=== PATIENT | male | born 1950 | race Caucasian/White ===

== ENCOUNTER 2023-01-12 16:32 | Emergency (ER) | payer OTHER ==
--- OUTSIDE RECORDS SUMMARY | 2023-01-12 16:35 | XMS REPORT | Continuity of Care Document ---
:1950 Author Organization [facility] t Address [address] [facility]. [address] [place] [address] Care Team Providers Name Role Phone Johnson Chen Primary Care Physician Doctor Unassigned, [place] Attending Clinician Unavailable Payers Payer Name Policy Type Policy Number Effective Date Expiration Date S ource Problems Condition Condition Condition Status Onset Resolution Last Treating Co mments Source Name Details Category Date Date Treatment Clinician Date Presence Presence Disease Active 2016-06 Unive rs of left of left 0-27 [place] shoulder 00 Med[place] joint joint Branch Other Other Disease Active 2016-06 Univers specified specified 0-17 [place] 00 Medical shoulder shoulder Branch Decreased Decreased Disease Active 2016-06 Uni vers range of range of 0-17 [place] 00 [place] left left Branch S/P S/P Disease Active 2016-06 Univers reverse reverse 0-17 ity of total total 00:00: [place] shoulder shoulder 00 Medica l arthroplas arthroplas Br anch ty, left ty, left Allergies, Adverse Reactions, Alerts This patient has no known allergies or adverse reactions. Social History Social Habit Start Date Stop Date Quantity Comments Source Sex Assigned At [birth year] [facility] 00:00:00 00:00:00 Medical Branch Smoking Status Start Date Stop Date Source Tobacco smoking consumption [facility] Medical unknown Branch Medications This patient has no known medications. Procedures Procedure Date / Time Performed Performing Clinician [facility] e REFERRAL- 2022-02-25 05:01:00 Doctor Unassigned, No [facility] [place] REQUEST/RESPONSE Name Medical Branch Encounters Start End Encounter Admission Attending Care Care Encounter Source Date/Time Date/Time Type Type Clinicians Facility Department ID 2022-02-25 2022-02-25 Orders Doctor ODEN [id number] [address] [facility] 00:00:00 00:00:00 Only Unassigned, BERNARD [id number] ity of [place] [facility] [id number] [facility] as [id number] [facility] 009 Branch Results This patient has no known results.
[2023-01-12 17:45] LABS: Absolute Lymphocytes (CBC) 2.5 K/uL (0.7-4.9); Hematocrit 36.7 % (39.6-49.0); MCV 89.6 fL (80-100); MPV 8.7 fL (7.6-11.3); Platelets 228 thou/uL (152-406)
[2023-01-12 17:48] LABS: Protime INR 0.95
--- NOTE | 2023-01-12 18:01 | RAD REPORT ---
EXAM DESCRIPTION: Chele Single View01/12/2023 5:49 pm CLINICAL HISTORY: Cough COMPARISON: August 2022 FINDINGS: Moderate bilateral interstitial lung opacities without obvious change probably chronic. Lungs appear clear of acute infiltrate. The heart remains enlarged IMPRESSION: No acute abnormalities displayed
[2023-01-12 18:12] LABS: AST/SGOT 11 U/L (15-37); Albumin 2.9 g/dL (3.4-5.0); Alkaline Phosphatase 60 U/L (45-117); BUN Blood Urea Nitrogen 11 mg/dL (7-18); Bicarbonate 29 mEq/L (21-32); Bilirubin Direct 0.2 mg/dL (0-0.2); Bilirubin Indirect, Calculated 0.2 mg/dL (0.2-0.8); Bilirubin Total 0.4 mg/dL (0.2-1.0); Glomerular Filtration Rate 90 ml/min (=/>90); Glucose Level 86 mg/dL (74-106); Magnesium 1.9 mg/dL (1.6-2.4); NT PRO-BNP 937 pg/mL (<125); Potassium 3.3 mEq/L (3.5-5.1); Protein, Total 6.7 g/dL (6.4-8.2); Sodium Level 134 mEq/L (136-145); Troponin High Sensitivity 7.8 pg/mL (<58.9)
--- NOTE | 2023-01-12 18:13 | RAD REPORT ---
EXAM DESCRIPTION: CT - Head Brain Wo Cont - 01/12/2023 6:03 pm CLINICAL HISTORY: Dizziness COMPARISON: none TECHNIQUE: Computed axial tomography of the head was obtained. IV contrast was not requested. All CT scans are performed using dose optimization technique as appropriate and may include automated exposure control or mA/KV adjustment according to patient size. FINDINGS: An intracranial bleed is not seen The ventricles are normal in caliber No significant hypodense areas within the brain visualized No extra-axial fluid collection is noted. Fluid within the sinuses/ mastoids is not seen IMPRESSION: No acute intracranial abnormality is seen If patient's symptoms persist MRI of the brain would be recommended
[2023-01-12 18:43] LABS: Specific Gravity 1.025 (1.005-1.030); Urine Bacteria <20 /HPF (<20); Urine Bilirubin NEGATIVE (Negative); Urine Blood Negative (Negative); Urine Clarity Turbid (Clear); Urine Color Yellow (Yellow); Urine Glucose NEGATIVE (Negative); Urine Mucus 1+ /HPF (None Seen); Urine Protein 1+ (Negative); Urine RBC <5 /HPF (None Seen); Urine Urobilinogen 1+ (Normal)
[2023-01-12 18:50] LABS: ALT/SGPT < 10 U/L (16-61)
[2023-01-12] MEDS ORDERED: MECLIZINE HCL 12.5 MG TAB ONE (19:57)
[2023-01-12] MEDS ORDERED: NA CHLORIDE 0.9% 250 ML ONE (19:57)
--- NOTE | 2023-01-12 21:06 | EDPHYS ---
Physician Documentation [facility] Name: El Bowen Age: 72 yrs Sex: Male : 1950 Arrival Date: 01/12/2023 Time: 16:32 Bed 17 Private MD: ED Physician Timothy Barrios HPI: 01/12 17:15 This 72 yrs old Male presents to ER via Ambulatory with complaints of Blood Pressure cp Problem, Dizziness. 17:15 The patient presents with dizziness, generalized weakness, lightheadedness, feeling off cp balance. 17:15 Onset: The symptoms/episode began/occurred this morning, at about 1100. Associated cp signs and symptoms: Pertinent negatives: abdominal pain, chest pain, confusion, diaphoresis, focal weakness, head injury, headache, near-syncope, shortness of breath, vomiting. Severity of symptoms: in the emergency department the symptoms are unchanged despite home interventions. Patient's baseline: Neuro: alert and fully oriented, Motor: tremor, Ambulation: walks without assistance, Speech: slow. Patient reports since yesterday he has noticed general weakness and today dizziness started, checked his blood pressure and systolic number was 90. Historical: - Allergies: 16:56 No Known Allergies; cm10 - PMHx: 16:56 Parkinson's disease; cm10 - Immunization history:: Adult Immunizations. - Social history:: Smoking status: Patient denies any tobacco usage or history of. ROS: 17:20 Constitutional: Negative for body aches, chills, fever, poor PO intake. cp 17:20 Eyes: Negative for injury, pain, redness, and discharge. cp 17:20 ENT: Negative for drainage from ear(s), ear pain, sore throat, difficulty swallowing, difficulty handling secretions. 17:20 Neck: Negative for pain with movement, pain at rest, stiffness. 17:20 Cardiovascular: Negative for chest pain, palpitations. 17:20 Respiratory: Negative for cough, shortness of breath, wheezing. 17:20 Abdomen/GI: Negative for abdominal pain, vomiting, diarrhea, constipation, black/tarry stool, rectal bleeding. 17:20 : Negative for urinary symptoms. 17:20 Neuro: Positive for dizziness, weakness, Negative for altered mental status, numbness, syncope. 17:20 All other systems are negative. Exam: 17:25 Constitutional: The patient appears in no acute distress, alert, awake, cp non-diaphoretic, non-toxic, well developed, well nourished. 17:25 Head/Face: Normocephalic, atraumatic. cp 17:25 Eyes: Periorbital structures: appear normal, Pupils: equal, round, and reactive to light and accomodation, Extraocular movements: intact throughout, Conjunctiva: normal, no exudate, no injection, Sclera: no appreciated abnormality, Lids and lashes: appear normal, bilaterally. 17:25 ENT: External ear(s): are unremarkable, Nose: is normal, Mouth: is normal, Posterior pharynx: is normal, airway is patent, no erythema, no exudate. 17:25 Neck: C-spine: vertebral tenderness, is not appreciated, crepitus, is not appreciated, ROM/movement: is normal, is supple, without pain, no range of motions limitations. 17:25 Chest/axilla: Inspection: normal. 17:25 Cardiovascular: Rate: normal, Rhythm: regular, Edema: is not appreciated, JVD: is not appreciated. 17:25 Respiratory: the patient does not display signs of respiratory distress, Respirations: normal, no use of accessory muscles, no retractions, labored breathing, is not present, Breath sounds: are clear throughout, no decreased breath sounds, no stridor, no wheezing. 17:25 Abdomen/GI: Inspection: abdomen appears normal, Bowel sounds: active, all quadrants, Palpation: abdomen is soft and non-tender, in all quadrants. 17:25 Back: pain, is absent, ROM is normal. 17:25 Skin: cellulitis, is not appreciated, that is mild, on the right groin, rash can be described as erythematous, papular, on the right groin and left groin. 17:25 Neuro: Orientation: to person, place \T\ time. Mentation: is normal, Motor: moves all fours, strength is normal, Sensation: no obvious gross deficits, Abnormal movements: resting tremor, is located in the right hand and left hand. 17:37 ECG was reviewed by the Attending Physician. cp Vital Signs: 16:55 BP 115 / 75; Pulse 75; Resp 16; Temp 97.9; Pulse Ox 99% ; Weight 78.47 kg; Height 6 ft. cm10 0 in. ; Pain 0/10; 17:13 BP 118 / 77; Pulse 74; Resp 16; Pulse Ox 99% on R/A; Pain 0/10; me1 18:27 BP 125 / 71; Pulse 69; Resp 17; Pulse Ox 96% on R/A; me1 19:12 BP 120 / 71 Supine; Pulse 70; Resp 18 S; Pulse Ox 98% on R/A; ha1 19:15 BP 125 / 69 Sitting; Pulse 68; Resp 17 S; Pulse Ox 98% on R/A; ha1 19:20 BP 106 / 73 Standing; Pulse 64; Resp 20 S; Pulse Ox 96% on R/A; ha1 20:00 BP 135 / 77; Pulse 62; Resp 18 S; Pulse Ox 100% on R/A; ha1 21:00 BP 141 / 73; Pulse 63; Resp 17 S; Pulse Ox 98% ; ha1 16:55 Body Mass Index 23.46 (78.47 kg, 182.88 cm) cm10 16:55 Pain Scale: Adult cm10 17:13 Pain Scale: Adult me1 MDM: 17:00 Patient medically screened. cp 21:05 Data reviewed: vital signs, nurses notes, lab test result(s), EKG, radiologic studies, cp CT scan, plain films. 21:05 Differential diagnosis: cardiac arrhythmia, CVA, generalized weakness, GI bleed, cp hypovolemia, TIA. Consideration of Admission/Observation Escalation of care including admission/observation considered. I considered the following discharge prescriptions or medication management in the emergency department Medications were administered in the Emergency Department. See MAR. 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 Response to treatment: the patient's symptoms have markedly improved after treatment, and as a result, I will discharge patient. 01/12 17:08 Order name: Basic Metabolic Panel; Complete Time: 19:19 cp 01/12 19:19 Interpretation: Normal except: NA 134; K 3.3. cp 01/12 17:08 Order name: CBC with Diff; Complete Time: 18:11 cp 01/12 19:20 Interpretation: Normal except: RBC 4.10; HGB 11.9; HCT 36.7; RDW 17.1. cp / 17:08 Order name: LFT's; Complete Time: 19:19 cp / 19:19 Interpretation: Normal except: AST 11; ALT < 10; ALB 2.9; GLOB 3.8; A/G 0.8. cp 01/12 17:08 Order name: Magnesium; Complete Time: 19:19 cp 01/12 17:08 Order name: NT PRO-BNP; Complete Time: 19:19 cp 01/12 20:46 Interpretation: NT PRO-BNP 937; Reviewed. cp 01/12 17:08 Order name: PT-INR; Complete Time: 18:11 cp 01/12 17:08 Order name: Troponin HS; Complete Time: 19:19 cp 01/12 17:08 Order name: Urinalysis W/Microscopic; Complete Time: 19:19 cp 01/12 19:19 Interpretation: Normal except: UCLA Turbid; UKET TRACE; UPROT 1+; UUROB 1+. cp 08/ 17:08 Order name: CT Head Brain wo Cont; Complete Time: 18:21 cp 01/12 18:21 Interpretation: Report reviewed. cp 01/12 17:08 Order name: XRAY Chest (1 view); Complete Time: 18:11 cp / 18:11 Interpretation: Report review. cp 01/12 17:08 Order name: EKG; Complete Time: 17:09 cp 01/12 17:08 Order name: Cardiac monitoring; Complete Time: 17:34 cp 01/12 17:08 Order name: EKG - Nurse/Tech; Complete Time: 17:34 cp 01/12 17:08 Order name: IV Saline Lock; Complete Time: 17:33 cp 08 17:08 Order name: Labs collected and sent; Complete Time: 17:33 cp 01/12 17:08 Order name: O2 Per Protocol; Complete Time: 17:34 cp 01/12 17:08 Order name: O2 Sat Monitoring; Complete Time: 17:34 cp 01/12 17:08 Order name: Orthostatics; Complete Time: 19:27 cp EC:37 Rate is 74 beats/min. Rhythm is regular. NV interval is normal. QRS interval is normal. cp QT interval is normal. T waves are Inverted in lead aVR. Interpreted by me. Reviewed by me. Administered Medications: 19:45 Drug: Meclizine PO 25 mg Route: PO; ha1 21:24 Follow up: Response: No adverse reaction ha1 19:45 Drug: NS 0.9% IV 250 ml Route: IV; Rate: bolus; Site: right antecubital; ha1 21:24 Follow up: Response: No adverse reaction; IV Status: Completed infusion; IV Intake: ha1 250ml 21:15 Drug: Doxycycline PO 100 mg Route: PO; ha1 21:24 Follow up: Response: No adverse reaction ha1 21:20 Drug: Fluconazole PO 200 mg Route: PO; ha1 21:24 Follow up: Response: No adverse reaction ha1 Disposition: 19:58 Co-signature as Attending Physician, Timothy Barrios DO Maggy was immediately available on-site ms3 in the Emergency Department for consultation in the care of the patient. Disposition Summary: 01/12/23 21:06 Discharge Ordered Location: Home cp Problem: new cp Symptoms: have improved cp Condition: Stable cp Diagnosis - Dizziness and giddiness cp - Weakness cp - Local infection of the skin and subcutaneous tissue, unspecified cp Followup: cp - With: Private Physician - When: 2 - 3 days - Reason: Recheck today's complaints Discharge Instructions: - Discharge Summary Sheet cp - Dizziness cp - Weakness cp Forms: - Medication Reconciliation Form cp - Thank You Letter cp - Antibiotic Education cp - Prescription Opioid Use cp - Patient Portal Instructions cp Prescriptions: - nystatin 100,000 unit/gram Topical cream - apply 1 application by TOPICAL route 3 times per day; 30 gram tube; Refills: 0, cp Product Selection Permitted - Meclizine 25 mg Oral Tablet - take 1 tablet by ORAL route every 8 hours As needed; 30 tablet; Refills: 0, cp Product Selection Permitted - Doxycycline Hyclate 100 mg Oral Tablet - take 1 tablet by ORAL route every 12 hours; 20 tablet; Refills: 0, Product cp Selection Permitted Signatures: Dispatcher [employer] EDMS Fernando Allison PA PA cp Sims, Marcus, DO DO ms3 Dominique Agee RN RN ha1 Makayla Mari RN RN cm10 Corrections: (The following items were deleted from the chart) 01/13 21:21 01/12 17:25 Skin: cellulitis, is not appreciated, no rash present. cp cp
--- NOTE | 2023-01-12 21:06 | ER ---
Nurse's Notes [facility] Name: El Bowen Age: 72 yrs Sex: Male : 1950 Arrival Date: 01/12/2023 Time: 16:32 Bed 17 Private MD: Diagnosis: Dizziness and giddiness;Weakness;Local infection of the skin and subcutaneous tissue, unspecified Presentation: 01/12 16:55 Chief complaint: Patient states: dizziness onset today at noon. Pt also reports low cm10 blood pressure. Per pt, his blood pressure was 90/52 at home. Coronavirus screen: Vaccine status: Patient reports receiving the 2nd dose of the covid vaccine. Ebola Screen: No symptoms or risks identified at this time. 16:55 Method Of Arrival: Ambulatory cm10 16:56 Initial Sepsis Screen: Does the patient meet any 2 criteria? No. Patient's initial cm10 sepsis screen is negative. Does the patient have a suspected source of infection? No. Patient's initial sepsis screen is negative. Risk Assessment: Do you want to hurt yourself or someone else? Patient reports no desire to harm self or others. Onset of symptoms was January 12, 2023. 16:56 Acuity: MICAELA 3 cm10 Triage Assessment: 19:00 General: Appears comfortable, Behavior is calm, cooperative. Pain: Denies pain. Neuro: ha1 Level of Consciousness is awake, alert, obeys commands, Oriented to person, place, time, situation. Neuro: Reports dizziness. Cardiovascular: Patient's skin is warm and dry. Respiratory: Airway is patent Respiratory effort is even, unlabored, Respiratory pattern is regular, symmetrical. GI: No signs and/or symptoms were reported involving the gastrointestinal system. Historical: - Allergies: 16:56 No Known Allergies; cm10 - PMHx: 16:56 Parkinson's disease; cm10 - Immunization history:: Adult Immunizations. - Social history:: Smoking status: Patient denies any tobacco usage or history of. Screenin:13 [facility] ED Fall Risk Assessment (Adult) Score/Fall Risk Level 3 or more points = High me1 Risk. Abuse screen: Denies threats or abuse. Nutritional screening: No deficits noted. Tuberculosis screening: No symptoms or risk factors identified. Assessment: 17:13 General: Appears comfortable, Behavior is calm, cooperative, appropriate for age. Pain: me1 Denies pain. Neuro: Level of Consciousness is awake, alert, obeys commands, Oriented to person, place, time, situation, Appropriate for age Gait is shuffling, Speech quiet. . tremors BUE. . Neuro: Reports dizziness. Cardiovascular: Capillary refill < 3 seconds Patient's skin is warm and dry. Cardiovascular: Reports low blood pressure at home. 90s/50s. Respiratory: Respiratory effort is even, unlabored, Respiratory pattern is regular, symmetrical. GI: Reports diarrhea, yesterday. 18:25 Derm: Rash noted that is red, raised, red, raised rash to skin fold in right groin at me1 and around incision where patient had a watchman placed about 2.5 weeks ago. Patient reports that it is very itchy. Notified SURINDER Rose. 19:00 Reassessment: SEE TRIAGE ASSESSMENT. ha1 20:00 Reassessment: Patient and/or family updated on plan of care and expected duration. Pain ha1 level reassessed. Patient is alert, oriented x 3, equal unlabored respirations, skin warm/dry/pink. 21:00 Reassessment: Patient and/or family updated on plan of care and expected duration. Pain ha1 level reassessed. Patient is alert, oriented x 3, equal unlabored respirations, skin warm/dry/pink. Patient denies pain at this time. Patient states feeling better. Patient states symptoms have improved. Vital Signs: 16:55 BP 115 / 75; Pulse 75; Resp 16; Temp 97.9; Pulse Ox 99% ; Weight 78.47 kg; Height 6 ft. cm10 0 in. ; Pain 0/10; 17:13 BP 118 / 77; Pulse 74; Resp 16; Pulse Ox 99% on R/A; Pain 0/10; me1 18:27 BP 125 / 71; Pulse 69; Resp 17; Pulse Ox 96% on R/A; me1 19:12 BP 120 / 71 Supine; Pulse 70; Resp 18 S; Pulse Ox 98% on R/A; ha1 19:15 BP 125 / 69 Sitting; Pulse 68; Resp 17 S; Pulse Ox 98% on R/A; ha1 19:20 BP 106 / 73 Standing; Pulse 64; Resp 20 S; Pulse Ox 96% on R/A; ha1 20:00 BP 135 / 77; Pulse 62; Resp 18 S; Pulse Ox 100% on R/A; ha1 21:00 BP 141 / 73; Pulse 63; Resp 17 S; Pulse Ox 98% ; ha1 16:55 Body Mass Index 23.46 (78.47 kg, 182.88 cm) cm10 16:55 Pain Scale: Adult cm10 17:13 Pain Scale: Adult me1 ED Course: 16:34 Patient arrived in ED. mr 16:35 Fernando Allison PA is PHCP. cp 16:35 Timothy Barrios DO is Attending Physician. cp 16:56 Triage completed. cm10 16:57 Arm band placed on Patient placed in an exam room, on a stretcher. cm10 17:04 Vangie Weaver, CHRISTINE is Primary Nurse. ph 17:05 Primary Nurse role handed off by Vangie Weaver RN me1 17:05 Carmen Lafleur, CHRISTINE is Primary Nurse. me1 17:13 Patient has correct armband on for positive identification. Placed in gown. Bed in low me1 position. Call light in reach. Side rails up X 1. Provided Education on: POC, verbalized understanding. . 17:13 No provider procedures requiring assistance completed. me1 17:33 Basic Metabolic Panel Sent. me1 17:33 CBC with Diff Sent. me1 17:33 LFT's Sent. me1 17:33 Magnesium Sent. me1 17:33 NT PRO-BNP Sent. me1 17:33 PT-INR Sent. me1 17:34 Troponin HS Sent. me1 17:34 Inserted saline lock: 20 gauge in right antecubital area, using aseptic technique. me1 17:51 XRAY Chest (1 view) In Process Unspecified. EDMS 18:04 CT Head Brain wo Cont In Process Unspecified. EDMS 18:20 Urinalysis W/Microscopic Sent. me1 21:25 IV discontinued, intact, bleeding controlled, No redness/swelling at site. Pressure ha1 dressing applied. Administered Medications: 19:45 Drug: Meclizine PO 25 mg Route: PO; ha1 21:24 Follow up: Response: No adverse reaction ha1 19:45 Drug: NS 0.9% IV 250 ml Route: IV; Rate: bolus; Site: right antecubital; ha1 21:24 Follow up: Response: No adverse reaction; IV Status: Completed infusion; IV Intake: ha1 250ml 21:15 Drug: Doxycycline PO 100 mg Route: PO; ha1 21:24 Follow up: Response: No adverse reaction ha1 21:20 Drug: Fluconazole PO 200 mg Route: PO; ha1 21:24 Follow up: Response: No adverse reaction ha1 Medication: 17:13 VIS not applicable for this client. me1 Intake: 21:24 IV: 250ml; Total: 250ml. ha1 Outcome: 21:06 Discharge ordered by MD. cp 21:25 Discharged to home via wheelchair, with family. ha1 21:25 Condition: stable 21:25 Discharge instructions given to patient, family, Instructed on discharge instructions, follow up and referral plans. medication usage, Demonstrated understanding of instructions, follow-up care, medications, Prescriptions given X 3. 21:25 Patient left the ED. ha1 Signatures: Dispatcher [employer] EDWI Gunnar Yazmin WeaverVangie RN Fernando Torres ph, PA PA cp Ayala, Heidy, RN RN 1 Makayla Mari RN RN 10 Carmen Lafleur RN RN ca1 Corrections: (The following items were deleted from the chart) 21:25 21:00 Reassessment: Patient and/or family updated on plan of care and expected ha1 duration. Pain level reassessed. Patient is alert, oriented x 3, equal unlabored respirations, skin warm/dry/pink. ha1
[2023-01-12] MEDS ORDERED: DOXYCYCLINE 100 MG CAP PO ONE (21:19)
[2023-01-12 21:47] VITALS: TEMP 97.9
[2023-01-12 21:58] VITALS: BP 141/73; O2SAT 98
--- NOTE | 2023-01-14 18:15 | EKG ---
Test Date: 2023-01-12 Test Time: 17:34:04 Cad Application Support Specialist: PH MEASUREMENT RESULTS: Intervals: Rate: 74 AR: 182 QRSD: 84 QT: 420 QTc: 466 [place]idden: P: 47 AR: 182 QRS: 45 T: 61 INTERPRETIVE STATEMENTS: Normal sinus rhythm Normal ECG Compared to ECG 09/02/2022 12:06:24 Prolonged QT interval no longer present Electronically Signed On 01-14-23 18:11:49 CDT by Modesto Lozano
== END 2023-01-12 21:25 | disposition home or self-care (01) ==
LOC: ER 16:32
DX: R42 Dizziness and giddiness (principal); R53.1 Weakness; L08.9 Local infection of the skin and subcutaneous tissue, unspecified; G20 Parkinson's disease
CPT/HCPCS: 96365; 93005; 85025; 81001; 80048; 36415; 83735; 85610; 80076; 84484; 83880; 70450; 71045; 99284; 96366; J8597; J7050